=== PATIENT | female | born 1995 | race Asian ===

== ENCOUNTER 2018-01-26 18:09 | Day surgery (SDC) | payer OTHER ==
[~2018-01-26] VITALS: Ht 160 cm; Wt 68.8 kg
[2018-01-26 19:08] LABS: ALBUMIN 4.9 gm/dL (3.5-5.0); BILIRUBIN,TOTAL 1.3 mg/dL (0.0-1.0); CALCIUM 9.4 mg/dL (8.4-10.2); CREATININE, serum 0.58 mg/dL (0.52-1.25); POTASSIUM 3.6 mmol/L (3.4-5.0); TOTAL PROTEIN 7.9 gm/dL (6.4-8.2)
[2018-01-26 21:53] VITALS: BP 99/58; PULSE 59; TEMP 98.3
[2018-01-27] VITALS (16 sets, daily range): BP systolic 92–106; BP diastolic 52–65; PULSE 55–93; TEMP 98.2–98.9
[2018-01-27] MEDS ORDERED: NORCO 325 MG-51 TAB PO (16:51)
[2018-01-28 01:27] VITALS: BP 98/56; PULSE 49; TEMP 98.3
[2018-01-28 05:11] VITALS: BP 99/59; PULSE 53; TEMP 97.5
== END 2018-01-28 09:42 | disposition home or self-care (01) ==
LOC: COL.ER 18:09 → SURG 20:11 → SDCO 20:11 → COL.ER 20:11 → SURG 01-27 12:00 → SDCO 01-28 09:42
PROVIDERS: Emergency Medicine
DX: K35.80 Unspecified acute appendicitis (principal); D27.0 Benign neoplasm of right ovary
CPT/HCPCS: OP; G0378; J0330; J0690; J1100; J1335; J1885; J2405; J2704; J3010; J7030; J7050; Q9967

== ENCOUNTER → 2021-12-26 | Outpatient (CLI) | payer OTHER ==
[~2021-12-26] MED LIST: NORCO 325 MG-51 TAB PO
== END ==
LOC: COL.RAD 07:47
DX: R10.13 Epigastric pain (principal)

== ENCOUNTER 2023-01-28 10:40 | Outpatient (RCR) | payer OTHER | END 2023-02-21 | disposition home or self-care (01) | LOC: WSOH | DX: T26.62XA Corrosion of cornea and conjunctival sac, left eye, initial encounter (principal); Y99.0 Civilian activity done for income or pay ==